=== PATIENT | female | born 1965 | race Two or more races ===

== ENCOUNTER 2025-01-10 11:01 | Emergency (ER) | payer MEDICAID, SELFPAY ==
[2025-01-11] MEDS: KETOROLAC INJ 30 MG/ML VIAL 15 MG IM (14:22)
== END 2025-01-10 17:18 | disposition home or self-care (01) ==
PROVIDERS: Emergency Provider Emergency Medicine
DX: M54.50 Low back pain, unspecified (principal)
CPT/HCPCS: 96372; 99283; J1885